=== PATIENT | male | born 1975 | race Two or more races ===

== ENCOUNTER 2017-01-16 11:10 | Day surgery (SDC) | payer MEDICAID, OTHER ==
[2017-01-16] MEDS ORDERED: IOPAMIDOL 370 (76%) 100 ML VIAL IV ONE (11:11)
[2017-01-16 12:09] LABS: SPECIFIC GRAVITY 1.015 (1.001-1.030); URINE BILIRUBIN NEGATIVE (NEGATIVE); URINE BLOOD TRACE (NEGATIVE); URINE GLUCOSE (UA) NEGATIVE (NEGATIVE); URINE LEUKOCYTE ESTERASE TRACE (NEGATIVE); URINE NITRITE NEGATIVE (NEGATIVE); URINE PROTEIN NEGATIVE (NEGATIVE); URINE UROBILINOGEN NORMAL (0-1 mg/dl)
[2017-01-16 12:11] LABS: URINE APPEARANCE CLEAR; URINE COLOR YELLOW
[2017-01-16 12:29] LABS: URINE BACTERIA 0; URINE EPITHELIAL CELLS 0-2 /hpf; URINE RBC 0-1 /hpf; URINE WBC 0-1 /hpf
[2017-01-16] MEDS ORDERED: ONDANSETRON 4 MG/2ML 2 ML VIAL ONE ×2 (12:37→16:46)
[2017-01-16] MEDS ORDERED: MORPHINE SULFATE 4 MG/ML SYRINGE ONE (12:37)
[2017-01-16] MEDS ORDERED: SODIUM CHLORIDE 0.9% 1,000 ML ONE (12:37)
[2017-01-16 12:51] LABS: ABSOLUTE NEUTROPHIL COUNT 7.9 K/mm3 (1.8-7.7); BASO % 0.2 % (0.2-1.0); EOS # 0.1 (0.0-0.5); EOS % 0.6 % (0.9-2.9); HEMATOCRIT 42.4 % (32.0-52.0); HEMOGLOBIN 14.4 gm/l (14.0-18.0); IMM NEUT% 0.4 % (0-1); LYMPH % 18.6 % (15-45); MEAN CELL VOLUME 87.1 fl (80.0-94.0); MEAN CORPUSCULAR HEMOGLOBIN 29.6 pg (27.0-31.0); MEAN PLATELET VOLUME 11.4 fl (7.4-10.4); MONO # 0.7 (0.0-0.8); MONO % 6.5 % (4-12); NEUT % 73.7 % (43-75); PLATELET COUNT 244 K/mm3 (130-400); RED CELL DISTRIBUTION WIDTH 12.1 % (11.5-14.5)
[2017-01-16 13:08] LABS: ALB/GLOB RATIO 1.4 (>1.0); ALBUMIN 4.2 gm/dL (3.5-5.7); CALCIUM 8.8 mg/dL (8.6-10.3)
--- NOTE | 2017-01-16 13:57 | CT ---
Exam: CT abdomen and pelvis with contrast COMPARISON: None INDICATION: Right lower quadrant pain. TECHNIQUE: CT examination of the abdomen and pelvis was obtained following the administration 100 mL Isovue-370 intravenous contrast. FINDINGS: Focal severe inflammatory changes are identified within the right lower quadrant, related to acute appendicitis. The appendix is dilated and demonstrates marked significant wall thickening. There is a minimal amount of fluid within the right lower quadrant without a well-defined fluid collection to suggest abscess formation. There is focal decreased enhancement within the lateral wall of the appendix; focal necrosis cannot be excluded. There is no free air. There is no bowel obstruction. Urinary bladder unremarkable. No significant pelvic lymphadenopathy. Minor hepatic steatosis. Spleen is normal in size. Kidneys are within normal limits and there is no adrenal mass. Pancreas and gallbladder are unremarkable. Miniscule fat-containing periumbilical hernia is noted. Lung bases are clear. Degenerative disc disease is noted at the lumbosacral junction. IMPRESSION: Acute appendicitis, with marked surrounding inflammatory changes. Focal necrosis of the wall cannot be excluded although there is no definite evidence of perforation and there is no abscess formation. Findings discussed with Dr. King at 1347 hours 01/16/2017.
[2017-01-16] MEDS ORDERED: PIPERACILLIN-TAZO PREMIX BAG 50 ML IV ONE (14:13)
[2017-01-16] MEDS ORDERED: LACTATED RINGERS 1,000 ML ONE (14:13)
[2017-01-16] MEDS ORDERED: LACTATED RINGERS 1,000 ML IV SCH ×2 (15:12→18:30)
[2017-01-16] MEDS ORDERED: ONDANSETRON 4 MG/2ML 2 ML VIAL IV PRN ×3 (15:12→19:40)
[2017-01-16] MEDS ORDERED: MORPHINE SULFATE 2 MG/ML SYRINGE IV PRN ×2 (15:12→19:40)
[2017-01-16] MEDS ORDERED: MENTHOL/CETYLPYRD 1 EACH LOZENGE PO PRN (15:12)
[2017-01-16] MEDS ORDERED: BLISTEX LIPSTICK 1 EACH TP PRN (15:12)
[2017-01-16] MEDS ORDERED: MORPHINE SULFATE 4 MG/ML SYRINGE IV PRN ×2 (15:15→20:13)
[2017-01-16 15:22] VITALS: BMI 34.1
[2017-01-16] MEDS ORDERED: PUMP TUBING ONE (15:31)
[2017-01-16] MEDS ORDERED: PROPOFOL 20 ML IV ONE ×2 (16:46→18:10)
[2017-01-16] MEDS ORDERED: ROCURONIUM BROMIDE 10 MG/ML DOSE IV ONE ×3 (16:46→18:09)
[2017-01-16] MEDS ORDERED: LIDOCAINE 2% (PRES FREE) 5 ML VIAL ONE (16:46)
[2017-01-16] MEDS ORDERED: MIDAZOLAM HCL 5 MG/5 ML VIAL ONE (16:47)
[2017-01-16] MEDS ORDERED: FENTANYL 5 ML ONE ×2 (16:47→18:10)
[2017-01-16] MEDS ORDERED: BUPIVACAINE 0.5% W/EPI SDV 30 ML VIAL ONE (16:59)
[2017-01-16] MEDS ORDERED: FENTANYL 100 MCG/2 ML VIAL IV PRN (18:18)
[2017-01-16] MEDS ORDERED: HYDROMORPHONE HCL 1 MG/ML SYRINGE IV PRN (18:18)
[2017-01-16] MEDS ORDERED: PROMETHAZINE HCL 25 MG/ML VIAL IM PRN (18:18)
[2017-01-16] MEDS ORDERED: NEOSTIGMINE METHYLSULFATE 1 MG/ML DOSE ONE ×2 (18:20)
[2017-01-16] MEDS ORDERED: GLYCOPYRROLATE 0.2 MG/ML 1ML VIAL ONE ×2 (18:20)
[2017-01-16] MEDS ORDERED: KETOROLAC TROMETHAMINE 30 MG/ML 1 ML VIAL ONE (18:30)
[2017-01-16] MEDS ORDERED: OXYCODONE HCL 5 MG TABLET PO PRN (19:40)
[2017-01-16] MEDS ORDERED: ACETAMINOPHEN 325 MG TABLET PO PRN (19:40)
[2017-01-16] MEDS ORDERED: MORPHINE SULFATE 10 MG/ML SYRINGE IV PRN (20:14)
[2017-01-16] MEDS: PIPERACILLIN-TAZO PREMIX BAG 3.375 G in Premix (D5W) 50 ml 1 EACH IV SCH (20:36)
[2017-01-16] MEDS: LACTATED RINGERS 1,000 ML IV SCH (20:36)
--- NOTE | 2017-01-16 20:50 | HP ---
LOLA OLIVAREZ [id number] DATE OF SERVICE: 01/16/2017 CHIEF COMPLAINT: Abdominal pain. HISTORY OF PRESENT ILLNESS: This is a 41-year-old male who presented to the emergency room with a two day history of right lower quadrant abdominal pain. He has had no nausea or vomiting. He may have had a little diarrhea and maybe had a fever. It hurts when he moves. He has never had pain like this before. No one else around him has been sick. He was evaluated in the emergency room and had a CT scan. The CT scan was interpreted and showed an acute appendicitis. There was an area that was concerning for possible necrosis of the appendix. A surgical consultation was requested. PAST MEDICAL HISTORY: 1. Distant history of asthma. 2. History of gastritis. PAST SURGICAL HISTORY: A cyst removed from the left leg. CURRENT MEDICATIONS: Pepcid. ALLERGIES TO MEDICATIONS: None known. FAMILY HISTORY: No one else in the family has been sick. No familial complications with anesthesia identified. SOCIAL HISTORY: He does not smoke. He drinks alcohol daily. Denies drug use. REVIEW OF SYSTEMS: Constitutional - possible fever. HEENT - eyes, no complaints. Ears, nose and throat, no complaints. Cardiac - no complaints. Pulmonary - no complaints. GI - as above. - no complaints. Musculoskeletal - he had some pain in his great toe on the left foot recently. Neurologic - no complaints. Endocrine - no complaints. Hematologic - no complaints. Psychiatric - no complaints. PHYSICAL EXAMINATION: VITAL SIGNS: Temperature 98.6. Pulse 74. Blood pressure 124/80. Respirations 20. GENERAL: He is awake and alert, appears in no acute distress. HEENT: Atraumatic and normocephalic. Eyes, pupils equal. Sclera nonicteric. Oropharynx - no exudate or erythema seen. NECK: Supple, without lymphadenopathy or thyromegaly. LUNGS: Clear to auscultation. Normal respiratory effort. HEART: Regular rate and rhythm. No murmurs heard. ABDOMEN: Soft and nondistended. He is tender in the right lower quadrant. He does not have rebound tenderness or involuntary guarding. No masses are palpable. No organomegaly appreciated. EXTREMITIES: Without cyanosis, clubbing or edema. NEUROLOGIC: He is alert and oriented. Sensation grossly intact throughout all extremities. PSYCHIATRIC: Shows no signs of anxiety or depression. Appears able to make informed medical decisions. LABORATORIES: White blood cell count 10.7, hemoglobin 14.4 and platelets are 244. Sodium of 38, potassium 3.6, chloride 103, carbon dioxide is 26, BUN is 15, creatinine 0.9 and glucose is 105. IMAGING: CT scan images were reviewed. There is clearly an inflammatory process going on in the right lower quadrant. There is no clear abscess. This fits with acute appendicitis. ASSESSMENT: 1. Abdominal pain and probable acute appendicitis with possible necrosis. 2. Gastritis. PLAN: We discussed the options for treatment of appendicitis. With CAT scan showing necrosis, I think it is reasonable to proceed to the operating room for appendectomy. We discussed the procedure of laparoscopic and possible open appendectomy. We discussed the risks of bleeding, infection, injury to the intestines or surrounding structures and the possible need to convert to an open procedure. He expressed understanding and is willing to proceed. cc: MIKAL Carrillo
--- NOTE | 2017-01-16 21:14 | OP ---
LOLA OLIVAREZ [id number] DATE OF SERVICE: 01/16/2017 PREOPERATIVE DIAGNOSIS: Right lower quadrant abdominal pain. POSTOPERATIVE DIAGNOSIS: Acute appendicitis. PROCEDURE: LAPAROSCOPIC APPENDECTOMY. SURGEON: Dr. Shukri Villa ANESTHESIA: Bianca Marquez CRNA, general endotracheal. INDICATIONS: A 41-year-old male who presents with a two day history of right lower quadrant abdominal pain. A CAT scan suggests appendicitis with necrosis. DESCRIPTION: With informed consent he was taken to the operating room where he was laid supine on the OR table. General endotracheal anesthetic was administered. The abdomen was prepped and draped in the usual fashion. Local anesthetic was administered below the umbilicus. An incision was made. The fascia was grasped with Nain clamps and divided with curved Cummings scissors. Sutures of SURGILON were placed on the fascial edges and a Geoff port was placed. A pneumoperitoneum was created. Local anesthetic was administered in the suprapubic region and also in the left lower quadrant. Stab incisions were made and 5 mm ports were placed. There was clearly an inflammatory process in the right lower quadrant. There was paracolic fat from the sigmoid colon attached over to a grossly necrotic appendix. This was easy to separate. The appendix was quite adhered to the pelvic sidewall down into the pelvis. I was able to elevate that with some blunt dissection. I eventually identified the base of the appendix. This area was soft. The remainder of it was very hard. I was able to create a defect in the mesoappendix. An Endo BRENDAN was used to separate the appendix from the cecum. We used two fires of the Endo BRENDAN to divide the mesoappendix. Once it was , it was placed within an ENDOCATCH bag and removed through the infraumbilical port site. The right lower quadrant was irrigated. Hemostasis was insured. Ports were removed and the pneumoperitoneum was evacuated. The infraumbilical fascial defect was closed with [id number] sutures of 0-SURGILON. The other fascial defects were small. The skin was closed with subcuticular 4-0 MONOCRYL. Mastisol and Steri-Strips were placed and dressings were applied. He tolerated the procedure and was taken to the recovery room in stable condition. Note was made that needle, instrument and lap counts were reported as correct at the time of closure. cc: MIKAL Carrillo
[2017-01-17] MEDS ORDERED: KETOROLAC TROMETHAMINE 30 MG/ML 1 ML VIAL IV PRN (00:30)
[2017-01-17] MEDS: PIPERACILLIN-TAZO PREMIX BAG 3.375 G in Premix (D5W) 50 ml 1 EACH IV SCH ×2 (03:15→08:29)
[2017-01-17] MEDS: LACTATED RINGERS 1,000 ML IV SCH (06:57)
[2017-01-17 07:28] VITALS: BP 102/47
[2017-01-17] MEDS ORDERED: FAMOTIDINE 10 MG/ML 2ML VIAL IV SCH (09:00)
--- NOTE | 2017-01-17 10:12 | PDOC43 ---
- Subjective Subjective: Reports Pain Tolerable, Denies Nausea - Objective Vital Signs Temperature 98.6 F 01/17/17 07:27 Pulse Rate 78 01/17/17 07:27 Respiratory Rate 18 01/17/17 07:27 Blood Pressure 102/47 01/17/17 07:27 O2 Saturation by Pulse Oximetry 100 01/17/17 07:27 Oxygen Delivery Method Room Air Oxygen Flow Rate 0 Laboratory 01/16/17 12:30 01/16/17 12:30 Active Medication Orders Category Date Time Status Acetaminophen [Tylenol] Med 01/16/17 19:40 Active 650 mg PO Q6H PRN Famotidine [Pepcid] Med 01/17/17 09:00 Active 20 mg IV DAILY Ketorolac Tromethamine [Toradol] Med 01/17/17 00:30 Active 30 mg IV Q6H PRN Lactated Ringers 1,000 ml Med 01/16/17 19:40 Active IV 100 mls/hr Morphine Sulfate Med 01/16/17 19:40 Active 1 - 6 mg IV Q1H PRN Morphine Sulfate Med 01/16/17 20:13 Active 1 - 6 mg IV Q1H PRN Morphine Sulfate Med 01/16/17 20:14 Active 1 - 6 mg IV Q1H PRN Ondansetron 4 mg/2ml Vial [Zofran] Med 01/16/17 19:40 Active 4 mg IV Q6H PRN Oxycodone HCl [Roxicodone] Med 01/16/17 19:40 Active 5 - 10 mg PO Q4H PRN Piperacillin-Tazo Premix Bag [Zosyn 3.375 G] 3.375 g Med 01/16/17 20:30 Active Premix (D5W) 50 ml 1 each IV Q6H Intake and Output 01/16/17 01/17/17 01/18/17 06:59 06:59 06:59 Intake Total 4076 Output Total 1470 Balance 2606 General: Alert, Oriented x3 - Assessment/ Plan (1) Acute appendicitis Status: AcuteAssessment/ Plan: Called by nurse that he is doing well and is ready to go. I was going to round in 2.5 hrs. Will discharge by phone. No additional antibiotics needed post- op at home.
--- NOTE | 2017-01-21 13:31 | SURGPATH ---
[facility] [address] [place] [id number] Patient Name: LOLA OLIVAREZ MR#: [id number] : 1975 Gender: M Specimen #: [id number] Collected: 01/16/2017 Received: 01/20/2017 Reported: 01/21/2017 Submitting Phys: ZEE LANDRUM Copy To Phys: [facility] GABRIELLE STACI Gumaro Clinical History / Pre-Operative Diagnosis: ACUTE APPENDICITIS Specimen Source / Surgical Procedure Performed: APPENDIX Interpretation: APPENDIX, APPENDECTOMY: - ACUTE APPENDICITIS Electronically Signed Out Elizabeth Ray M.D. Gross Description: The specimen is received in a formalin filled container labeled with the patient's name and "appendix". A vermiform appendix is 9.5 x 1.5 cm. The focally hemorrhagic periappendiceal fat is 8.0 x 3.5 x 2 cm. The serosa is moderately hemorrhagic and has focal areas lightly covered with white thomas fibrinopurulent exudate. The surgical staple line is removed and the adjacent section is inked black and submitted as margin. The lumen is focally patent and contains a small amount of soft, pale moon purulent material. There is no nodule or fecalith. Three sales representative groceries sections are submitted in one cassette including a cross section through the appendiceal surgical margin, a central cross section and a longitudinal section through the tip. Nola Jackson Microscopic Description: Sections show an ulcerated appendix with transmural acute inflammation. 1: [id number] K35.3
== END 2017-01-17 11:36 | disposition home or self-care (01) ==
LOC: ED 11:10 → SDC 14:23 → MS 14:23 → SDC 14:29
PROVIDERS: ATTEND Surgery
PROC: 0DTJ4ZZ Resection of Appendix, Percutaneous Endoscopic Approach (ICD-10-PCS; principal; 2017-01-16)
DX: K35.80 Unspecified acute appendicitis (principal); K29.70 Gastritis, unspecified, without bleeding; Z87.09 Personal history of other diseases of the respiratory system
CPT/HCPCS: 83690; 85025; 80053; 81001; 74177; 94010; 96375 ×2; 99284; 96374; 99285; 44970; J3010 ×2; J2270 ×2; A9270; J1885; J2250; J2405 ×2; J2543; J7120 ×4; J7030 ×2; Q9967